=== PATIENT | male | born 1965 | race Caucasian/White ===

== ENCOUNTER 2024-10-30 10:46 | Outpatient (CLI) | payer OTHER, SELFPAY ==
--- NOTE | 2024-10-30 10:53 | FL_ITS ---
FINAL REPORT CLINICAL HISTORY: DYSPHAGIA 493.98 dap 1.46 fluoro FINDINGS: MODIFIED BARIUM SWALLOW History: Dysphagia FINDINGS: Fluoroscopy was provided for the speech pathologist to evaluate the swallowing mechanism. The patient was given several different consistencies of barium while the swallow was visualized fluoroscopically. The report of the speech pathologist should be consulted prior to making dietary decisions. Fluoroscopy time: 1 minute 46 seconds Fluoro dose: 493.98 DAP in uGym[employer] IMPRESSION: Modified barium swallow under fluoroscopic guidance. Please see the report of the speech pathologist for Dietary recommendations. Reviewed, Interpreted and Dictated by Shirlene Bob MD Transcribed by LEO Douglas Authenticated and [facility]
[2024-10-30] MEDS: BARIUM SULFATE(LIQUID E-Z-PAQUE);355ML BOTTLE 355 ML PO (11:39)
--- NOTE | 2024-10-30 11:41 | HMH.SLMBS2 ---
Speech & Language Evaluation Speech/Lang Modified Barium Swallow Start: 10/30/24 11:28 Freq: once Status: Complete Protocol: Document 10/30/24 11:28 [facility] (Rec: 10/30/24 11:41 [facility] laptop) SECURITIES BROKER Evaluation Information SECURITIES BROKER Evaluation Information Date of Evaluation: 10/30/24 Time of Evaluation: 11:00 Evaluation Type Initial Certification Reason for Referral dysphagia per MD order Does Patient Qualify for Service No Qualify/Failure Comment Based on clinical observations made throughout instrumental assessment, further skilled speech therapy services are not warranted at this time d/t safe and efficient oropharyngeal swallow and WFL mastication and manipulation of bolus. Pt would benefit from GI referral d/t globus sensation in chest area. MBS Recommendations Plan Pt/Guardian verbally ack understanding Yes of dx/prognosis/goals Diet Dietary Recommendations Regular,Thin Liquids SL Swallow Guidelines Standard Aspiration Prec., Reflux precautions Treatment/Strategies Strategy/Precaution Recommended Sitting Upright (90 deg) Referral/Other Recommended Referrals GI Consult Comment Pt would benefit from GI consult d/t globus sensation in chest area. SECURITIES BROKER Patient History Section SECURITIES BROKER Patient History Primary Medical History Pt expressed PMHx including hypertension and type 2 diabetes. Pt stated in the past he was on reflux medication that he has stopped taking. No other significant PMHx was expressed. Does Patient have Reflux or GERD? Yes Does Patient Experience Coughing or No Choking Episodes? Does Patient Avoid Certain Food Textures Yes /Consistencies? Food Textures/Consistencies Comment Pt stated that problem originally occurred when eating fibrous meats, however now occurs on most foods he eats that are regular consistency. Does Patient Utilize Compensatory No Strategies During Meals? Has Patient Experienced Significant No Weight Loss? Does Pt have Hx of Recurrent Pneumonias No or Respiratory Infections? Has Patient Noticed Change in Vocal No Quality? Mod Barium Swallow Study Patient Orientation Patient Orientation Person,Place,Time,Situation Oral Expression Ability No Impairment Ability to Follow Directions Excellent Is Patient able to Perform Volitional Yes Throat Clear? Is Patient able to Perform Volitional Yes Cough? Is Patient able to Manage Secretions Yes Independently? Mod Barium Swallow Set Up Radiologist Piyush Chatterjee Patient Presentation: Awake,Alert,Appropriate, Follows Commands Bolus Consistencies Trialed: Thin Liquids,Pudding,Puree, Mechanical Soft,Regular,Mixed, Pill (Barium Tablet) MBSS Observations Consistency & Strategy Trial Regular Penetration/Aspiration Scale 1 PAS Amount Neither Pharyngeal Residual 0-9% Mechanical Soft Penetration/Aspiration Scale 1 PAS Amount Neither Pharyngeal Residual 0-9% Puree Penetration/Aspiration Scale 1 PAS Amount Neither Pharyngeal Residual 0-9% Pudding Penetration/Aspiration Scale 1 PAS Amount Neither Pharyngeal Residual 0-9% Thin Penetration/Aspiration Scale 1 PAS Amount Neither Pharyngeal Residual 0-9% Mod Barium Swallow Impressions Oral Phase Summary & Impressions Oral Phase: Impression No Impairment (WFL) Oral Phase: Labial Closure No Impairment (WFL) Oral Phase: Bolus Formation Pooling L/R No Impairment (WFL) Oral Phase: Bolus Formation Under Tongue No Impairment (WFL) Oral Phase: Bolus Formation Scattered No Impairment (WFL) Loss Oral Phase: Mastication Rotary Chew No Impairment (WFL) Oral Phase: Mastication Munching No Impairment (WFL) Oral Phase: Mastication Lateralization No Impairment (WFL) Oral Phase: Lingual Movement No Impairment (WFL) Oral Phase: Residue Clearing No Impairment (WFL) Oral Phase: Summary Oral phase of swallow was observed to be WFL on all consistencies trialed. Pharyngeal Phase Summary & Impressions Pharyngeal Phase: Impression Minimal Impairment Pharyngeal Phase: A/P Lingual Propulsion No Impairment (WFL) Spills Pharyngeal Phase: Swallow Response Delay No Impairment (WFL) Pharyngeal Phase: Base of Tongue No Impairment (WFL) Pharyngeal Phase: Epiglottic Coverage No Impairment (WFL) Pharyngeal Phase: Laryngeal Elevation No Impairment (WFL) Pharyngeal Phase: Vallecular Retention Minimal Impairment Clearing Pharyngeal Phase: Pharyngeal Wall No Impairment (WFL) Residue Clearing Pharyngeal Phase: Piriform Sinus No Impairment (WFL) Retention Pharyngeal Phase: Summary No aspiration/penetration observed on any consistency trialed. Minimal-mild vallecular residue observed during mechanical soft trial, which was cleared with subsequent swallow. UES opening was WFL on all consistencies observed. Barium tablet was cleared into esophagus and trial was observed to be WFL. Aspiration Aspiration? No Silent Aspiration? No SECURITIES BROKER MBSS Goals Education Instructions provided SECURITIES BROKER discussed clinical observations made throughout instrumental assessment, diet recommendations, compensatory strategies, and GI referral with pt who expressed understanding. Patient/Caregiver Able to Recall Able to recall/restate Information Reinforcement needed No PHYSICIAN CERTIFICATION: I certify the specified therapy services for Ac [facility]john are required, authorized, and reviewed every 30 days.
== END 2024-10-30 23:59 | disposition home or self-care (01) ==
LOC: RAD 10:47
PROVIDERS: PCP Family Medicine; Visit Provider Family Medicine
DX: R13.10 Dysphagia, unspecified (principal)
CPT/HCPCS: 74230; 92611